=== PATIENT | female | born 2000 | race Asian ===

== ENCOUNTER 2025-02-07 22:43 | Emergency (ER) | payer OTHER ==
[~2025-02-07] VITALS: Ht 149.9 cm; Wt 47.7 kg
[2025-02-07 23:06] VITALS: BP 111/83; PULSE 92; RESP 18; TEMP 98.1; O2SAT 0
[2025-02-08 01:05] LABS: PLATELET COUNT (AUTO) 364 K/uL (150-450); RED BLOOD CELL COUNT(AUTO) 4.23 MIL/uL (4.00-5.20); RED CELL DISTRIBUTION WIDTH 12.9 % (11.5-14.5); WHITE BLOOD COUNT (AUTO) 7.9 K/uL (4.5-11.0)
[2025-02-08 01:15] LABS: CALCIUM, TOTAL 8.6 mg/dL (8.8-10.5); CREATININE 0.41 mg/dL (0.60-1.30); GLOMERULAR FILTR. RATE CALC > 60 mL/min (>60); GLUCOSE,RANDOM 91 mg/dL (70-110); SODIUM SERUM 139 mmol/L (136-145); UREA NITROGEN, BLOOD 8 mg/dL (7-18)
== END 2025-02-08 06:19 | disposition home or self-care (01) ==
LOC: EMS 22:49
DX: S70.12XA Contusion of left thigh, initial encounter (principal); R58 Hemorrhage, not elsewhere classified; X58.XXXA Exposure to other specified factors, initial encounter; Y93.89 Activity, other specified; Y92.89 Other specified places as the place of occurrence of the external cause; Y99.8 Other external cause status
CPT/HCPCS: 80048; 84703; 85025; 93971; 99284